=== PATIENT | male | born 1960 | race Caucasian/White ===

== ENCOUNTER 2023-11-16 08:48 | Emergency (ER) | payer OTHER, SELFPAY ==
[2023-11-16 08:52] VITALS: BP 161/98
--- NOTE | 2023-11-16 10:16 | ED.GENMED ---
History of Present Illness
<Brenda Parson PA-C - Last Filed: 11/16/23 12:21>
General
Chief Complaint: Chest Pain
Source: patient
Exam Limitations: none
Time Seen by Provider: 11/16/23 09:52
Nursing documentation reviewed up to this point in time: agreed with
Travel History
Have you had any contact with someone who has COVID-19?: No
Do you have any symptoms of coronavirus? Fever > 100 degrees, chills, cough, shortness of breath, sore throat, loss of taste or smell, muscle aches, or headache?: No
History of Present Illness
History of Present Illness:
Patient is a 63 year old male presenting for evaluation of substernal/left-sided chest pain. Patient reports very vague symptoms over the past few days with acute worsening around 730 this morning while driving to work. Patient describes pain as
pleuritic in nature and reports difficulty taking a deep breath due to pain. Pain is made worse with movement. He denies any radiation of pain. He denies any fever, chills, cough, GI symptoms, symptoms.
Patient denies any recent travel or recent surgeries. He has no personal or family history of blood clots.
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 He did not notice any pain at that time.
Past History
<Brenda Parson PA-C - Last Filed: 11/16/23 12:21>
Past History
ED Past Medical History: Cancer (Malignant melanoma, removed from right posterior shoulder about a year and a half ago); Negative Asthma, HTN, Hypercholesterolemia, NIDDM or NC
ED Past Surgical History: Other (Skin surgery and right shoulder )
Patient has exhibited threatening behavior?: No
Social History
Tobacco: Non-smoker
Alcohol: Daily (Beer 1-2 daily)
Drug: None
Personal:
Living: with family
Employment: Employed
Family History
Family History: Diabetes, Hypertension and Other (Prostate cancer )
Phy Exam
<Brenda Parson PA-C - Last Filed: 11/16/23 12:21>
Physical Exam
Physical Exam:
General: Well appearing and non-toxic
Vitals: Hypertensive, otherwise vital signs stable; afebrile
HEENT: Atraumatic, normocephalic; protecting airway
Neck: appears supple, no JVD
CV: Regular rate and rhythm, heart sounds normal, no evidence of cyanosis; reproducible chest pain at lower sternal border
Resp: No evidence of respiratory distress, lungs clear without wheezing, rales, rhonchi; no accessory muscle use
Abd: Soft, nontender, non-distended
Extremities: No deformities, no evidence of cyanosis or edema; DP pulses palpable and equal bilaterally
Neuro: alert and oriented, grossly intact
Psych: Normal affect
Skin: Intact, no rashes
Scores
<Brenda Parson PA-C - Last Filed: 11/16/23 12:21>
Heart Score for Chest Pain Patients
STEMI patient?: No
History: Slightly or Non-Suspicious
ECG: Normal
Age: >45 - <65 years
Risk Factors: No Risk Factors
Troponin: </= Normal Limit
Heart Score for Chest Pain Patients: 1
Heart Score Risk: 2.5% MACE over next 6 weeks
Course
<Brenda Parson PA-C - Last Filed: 11/16/23 12:21>
Orders/Labs/Results
Orders:
Orders
11/16/23 08:52
Electrocardiogram (*1) Urgent
Reason for Study: Chest Pain
EKG- Treatment ONCE
11/16/23 10:17
Ketorolac [Toradol] 15 mg IV NOW STA
CR Chest - 2 Views Urgent
Comment:
Reason For Exam: pleuritic chest pain
11/16/23 10:34
Complete Blood Count/With Diff Urgent
Comprehensive Metabolic Panel Urgent
D-Dimer Urgent
Troponin I Urgent
Abnormal Lab Results
11/16/23
10:34
RBC 4.57 L 10^6/uL
(4.70-6.10)
Absolute Lymphs (auto) 1.0 L 10^3/uL
(1.2-3.4)
Lymphocytes % 16.5 L %
(20.5-51.1)
Sodium 133 L mmol/L
(135-145)
Glucose 101 H mg/dl
(70-99)
Total Bilirubin 1.7 H mg/dl
(0.2-1.3)
11/16/23 10:34
11/16/23 10:34
Vital Signs
Initial and Last Documented VS:
Initial Vital Signs
Temp Pulse Resp BP Pulse Ox
98.4 F 89 20 161/98 98
11/16/23 08:52 11/16/23 08:52 11/16/23 08:52 11/16/23 08:52 11/16/23 08:52
Last Documented Vital Signs
Temp Pulse Resp BP Pulse Ox
98.4 F 79 18 141/95 95
11/16/23 08:52 11/16/23 10:30 11/16/23 10:30 11/16/23 10:24 11/16/23 10:30
<Xavier Victoria, DO - Last Filed: 11/16/23 10:26>
Orders/Labs/Results
Orders:
Orders
11/16/23 08:52
Electrocardiogram (*1) Urgent
Reason for Study: Chest Pain
EKG- Treatment ONCE
11/16/23 10:17
Ketorolac [Toradol] 15 mg IV NOW STA
CR Chest - 2 Views Urgent
Comment:
Reason For Exam: pleuritic chest pain
11/16/23 10:34
Complete Blood Count/With Diff Urgent
Comprehensive Metabolic Panel Urgent
D-Dimer Urgent
Troponin I Urgent
Abnormal Lab Results
11/16/23
10:34
RBC 4.57 L 10^6/uL
(4.70-6.10)
Absolute Lymphs (auto) 1.0 L 10^3/uL
(1.2-3.4)
Lymphocytes % 16.5 L %
(20.5-51.1)
Sodium 133 L mmol/L
(135-145)
Glucose 101 H mg/dl
(70-99)
Total Bilirubin 1.7 H mg/dl
(0.2-1.3)
11/16/23 10:34
11/16/23 10:34
Vital Signs
Initial and Last Documented VS:
Initial Vital Signs
Temp Pulse Resp BP Pulse Ox
98.4 F 89 20 161/98 98
11/16/23 08:52 11/16/23 08:52 11/16/23 08:52 11/16/23 08:52 11/16/23 08:52
Last Documented Vital Signs
Temp Pulse Resp BP Pulse Ox
98.4 F 79 18 141/95 95
11/16/23 08:52 11/16/23 10:30 11/16/23 10:30 11/16/23 10:24 11/16/23 10:30
<Brenda Parson PA-C - Last Filed: 11/16/23 12:21>
MDM/Problems Addressed
Differential Diagnosis Includes:
muscular strain, pericarditis, GERD, PE, doubt ACS, pneumonia, pneumothroax
MDM/Problems Addressed:
Patient is 63-year-old male presenting for evaluation of left-sided pleuritic chest pain for the past few days that acutely worsened at 730 this morning. Reports difficulty taking deep breath due to pain. No radiation of pain or back pain. No
associated fever, chills, cough, nausea, vomiting, or symptoms. No recent viral/illness. No recent travel or surgeries. No history of blood clots. Patient is hypertensive otherwise vital signs stable. Physical exam as documented above.
Regular rate rhythm, lungs clear. There is reproducible chest pain at lower left sternal border. EKG obtained in triage shows normal sinus rhythm without signs of ischemia. I am most suspicious for musculoskeletal etiology. Given pleuritic
component�will check basic labs, troponin, D-dimer. Will get chest x-ray. Will give Toradol for pain. Will reassess
CBC without any clinically significant abnormalities. CMP with mild hyponatremia at 133 and elevated bilirubin to 1.7. Appear to be about patients baseline.
Initial troponin negative. Given symptoms have been persistent for > 3 hours, this is enough to rule out acute NC. D-dimer negative.
Wet read of chest xray shows no acute abnormalities.
Patient with very minimal improvement after toradol- states pain is worse with twisting movement of trunk. Cardiac workup negative and high suspicion for MSK etiology. No indication for admission. Will discharge with close return precautions,
NSAIDS, PCP follow-up. Patient comfortable with this plan. All questions answered.
Chronic conditions affecting care:
N/A
Acute Exacerbation and/or Progression of Chronic Illness:
N/A
<Brenda Parson PA-C - Last Filed: 11/16/23 12:21>
*Radiology
Radiology exam reviewed: preliminary read by ED provider
*Pulse Oximetry
Patient hypoxic: no
*EKG
Interpreted by ED Provider?: Yes
EKG Intrepretation Date: 11/16/23
Interpretation: normal
Comparison EKG: no changes
Heart Rate: 93
Rate: normal
Rhythm: sinus
[place]: normal axis
Interval: normal interval
QRS Pattern: normal QRS
Ischemia: no ischemia
*Subject Scientific Research Interpretation
Rate: normal and Subject Scientific Research- N/A
Interpretation: normal
Heart Rate: 82
Rhythm: sinus
*Critical Care Note
Total Time (30-74mins, 75-104mins- exclusive of procedures): Not Applicable
ED Attending Note
<Brenda Parson PA-C - Last Filed: 11/16/23 12:21>
-
Portions of this chart may have been created with voice recognition software.� Occasional wrong word or��sound alike� substitutions may have occurred due to the inherent limitations of voice recognition software.
<Xavier Victoria DO - Last Filed: 11/16/23 10:26>
ED Attending Note
Patient seen and examined by attending physician: Yes
I performed the substantive portion of visit, reviewed & personally made and approve the management plan that is documented in note by myself or VERONICA.: Yes
I performed a history and physical exam of patient and discussed management with resident, I reviewed resident's note and agree with documented findings and plan of care.: Yes
ED Attending Note:
I evaluated patient at bedside. The patient has at least moderate chest wall tenderness in the left lower sternal border. He tells me that the pain worsens when he moves the left upper extremity. He said the pain worsens when he takes a deep
breath then but reports no significant shortness of breath. His EKG shows no signs of ischemia. He has had a few days of symptoms but the symptoms worsened about 3 hours ago�will check a troponin and try Toradol.
Discharge Plan
Departure
Patient Disposition: Home (Routine Discharge)
Date of Disposition: 11/16/23
Time of Disposition: 11:48
Patient with high blood pressure during this ER visit?: Yes
Condition: Good
Covid-19: Not Applicable
Discharge Problem:
Chest pain of uncertain etiology
Instructions: Chest Pain (DC), Pleuritic Chest Pain (DC), BLOOD PRESSURE
Prescriptions:
No Action
No Current Medications
0
Referrals:
Gilbert Mcnally MD [Family Provider] - Follow up in 1 week
Activity Restrictions/Additional Instructions:
-Return to the emergency department with any worsening in chest pain or shortness of breath, severe back pain, difficulty breathing, high fevers, coughing up blood, intractable vomiting, worsening in current symptoms, or any other concerns
- You can take advil as needed for discomfort
-F/u with primary care for further evaluation/management
Interventions
Interventions:
*Risk Screen - Suicide Last Done: 11/16/23 08:52
*General Assessment Last Done: 11/16/23 08:52
*Neglect/Abuse Screening Last Done: 11/16/23 08:52
*ED COVID-19 Vaccine History Last Done: 11/16/23 10:25
ED- Cardiac Assessment Last Done: 11/16/23 10:43
[2023-11-16 10:24] VITALS: BP 141/95; BMI 26.3
[2023-11-16 10:41] LABS: % Basophils 0.6 % (0-2); % Eosinophils 0.2 % (0-6); % Immature Granulocytes 0.3 % (0-0.5); % Lymphocytes 16.5 % (20.5-51.1); % Monocytes 7.7 % (1.7-9.3); % Neutrophils 74.7 % (42.2-75.2); Absolute Monocytes 0.5 10^3/uL (0.1-0.6); Absolute Neutrophils 4.7 10^3/uL (1.4-6.5); Hematocrit 40.6 % (39.0-52.0); Hemoglobin 14.1 g/dL (13.0-18.0); Mean Corp Hgb Conc. 34.7 g/dL (33.0-37.0); Mean Corpuscular Hgb 30.9 pg (27.0-31.0); Mean Corpuscular Volume 88.8 fL (80.0-94.0); Mean Platelet Volume 9.1 fL (7.4-10.4); Nucleated Red Blood Cells % 0 % (-); Platelet Count 221 10^3/uL (130-400); Red Blood Cell Count 4.57 10^6/uL (4.70-6.10); Red Cell Dist. Width 12.2 % (11.5-14.5); White Blood Cell Count 6.2 10^3/uL (4.8-10.8)
[2023-11-16 10:48] VITALS: BP 133/95
[2023-11-16 10:57] LABS: ALT (SGPT) 31 U/L (0-50); AST (SGOT) 35 U/L (17-59); Albumin 4.3 g/dl (3.5-5.0); Alkaline Phosphatase 62 U/L (38-126); Blood Urea Nitrogen 15 mg/dl (9-20); Calcium 8.8 mg/dl (8.4-10.2); Carbon Dioxide 27 mmol/L (22-30); Chloride 101 mmol/L (98-107); Estimated Creatinine Clearance 105 ml/min; Glucose 101 mg/dl (70-99); Potassium 4.1 mmol/L (3.5-5.1); Sodium 133 mmol/L (135-145); Total Bilirubin 1.7 mg/dl (0.2-1.3); Total Protein 7.5 g/dl (6.3-8.2); eGFR > 60.00
[2023-11-16 11:00] VITALS: BP 125/80
[2023-11-16] MEDS: TORADOL 15 MG IV (11:01)
[2023-11-16 11:08] LABS: Troponin I < 0.012 ng/ml
[2023-11-16 11:23] LABS: D-Dimer < 0.27 ug/mlFEU (0.00-0.50)
== END 2023-11-16 11:55 | disposition home or self-care (01) ==
LOC: EMR 08:48
PROVIDERS: Physician Assistant; EMERGENCY PHYSICIAN Emergency Medicine; FAMILY PHYSICIAN Internal Medicine
DX: R07.89 Other chest pain (principal); R03.0 Elevated blood-pressure reading, without diagnosis of hypertension
CPT/HCPCS: 99285; 96374; 71046; 80053; 84484; 85025; 85379; 93005